=== PATIENT | female | born 1985 | race Caucasian/White ===

== ENCOUNTER 2016-05-20 13:56 | Inpatient (IN) ==
[2016-05-20] MEDS ORDERED: MEPERIDINE 25 MG/1 ML VIAL IM PRN (17:33)
[2016-05-20] MEDS ORDERED: LACTATED RINGERS 500 ML IV PRN (17:33)
[2016-05-20] MEDS ORDERED: LACTATED RINGERS 250 ML IV ONE (17:33)
[2016-05-20] MEDS ORDERED: PROMETHAZINE 25 MG/1 ML VIAL IM PRN (17:37)
[2016-05-20 18:03] LABS: Basophils % 0.1 % (0.0-0.8); Eosinophils # 0.1 10*3/uL (0.0-0.87); Eosinophils % 0.8 % (0.00-10.9); Hematocrit 32.4 VOL% (35.7-47.0); Immature Granulocytes % 0.5 %; Immature Granulocytes Absolute 0.04 #; Lymphocytes # 1.3 10*3/uL (1.4-4.0); Lymphocytes % 16.8 % (21.3-54.2); Mean Corpuscular Hemoglobin 29 PG (27-34); Mean Corpuscular Volume 85.3 FL (87-102); Mean Platelet Volume 11.3 FL (9.6-12.0); Monocytes # 0.4 10*3/uL (0.11-0.8); Monocytes % 5.5 % (1.7-12.7); Neutrophils # 5.7 10*3/uL (1.4-7.4); Neutrophils % 76.3 % (38.7-73.9); Platelet Count 186 10*3/uL (130-400); White Blood Count 7.5 10*3/uL (4.5-13.71)
[2016-05-20] MEDS: LACTATED RINGERS 1,000 ML IV SCH (18:30)
[2016-05-20] MEDS: ONDANSETRON 4 MG/2 ML VIAL IV PRN (18:50)
[2016-05-20] MEDS: FAMOTIDINE 20 MG/2 ML VIAL IV SCH (20:42)
[2016-05-21] MEDS: LACTATED RINGERS 1,000 ML IV SCH (05:00)
[2016-05-21] MEDS ORDERED: CITRIC ACID/SODIUM CITRATE 30 ML UDCUP PO ONE (05:19)
[2016-05-21 06:04] LABS: Basophils % 0.1 % (0.0-0.8); Eosinophils # 0.1 10*3/uL (0.0-0.87); Hematocrit 34.3 VOL% (35.7-47.0); Hemoglobin 11.4 GM/DL (12.0-16.0); Immature Granulocytes % 0.2 %; Immature Granulocytes Absolute 0.02 #; Lymphocytes # 1.7 10*3/uL (1.4-4.0); Lymphocytes % 20.3 % (21.3-54.2); Mean Corpuscular HGB Conc 33.2 GM/DL (32-36); Mean Corpuscular Hemoglobin 29 PG (27-34); Mean Corpuscular Volume 86.4 FL (87-102); Mean Platelet Volume 11.1 FL (9.6-12.0); Monocytes # 0.5 10*3/uL (0.11-0.8); Monocytes % 6.5 % (1.7-12.7); Neutrophils # 5.9 10*3/uL (1.4-7.4); Neutrophils % 71.9 % (38.7-73.9); Platelet Count 210 10*3/uL (130-400); Red Blood Count 3.97 10*6/uL (3.8-5.5); Red Cell Distribution Width 14.2 % (9.3-17.3); White Blood Count 8.2 10*3/uL (4.5-13.71)
[2016-05-21] MEDS ORDERED: OXYTOCIN/LR 20 UNIT/1,000 ML BAG IV ONE ×3 (06:39→12:55)
[2016-05-21] MEDS: FAMOTIDINE 20 MG/2 ML VIAL IV SCH (06:43)
[2016-05-21] MEDS ORDERED: ONDANSETRON 4 MG/2 ML VIAL ONE (07:35)
[2016-05-21] MEDS ORDERED: GLYCOPYRROLATE 0.4 MG/2 ML VIAL ONE (07:35)
[2016-05-21] MEDS ORDERED: PHENYLEPHRINE 1 MG/10 ML SYRINGE IV ONE (07:35)
--- NOTE | 2016-05-21 07:49 | History and Physical Update ---
History and Physical Update - History and Physical H&P was reviewed, the patient examined and there: are no changes in the patients condition since last H&P was completed.
--- NOTE | 2016-05-21 07:51 | Event Note ---
the pt was admitted last night complaining of contractions and lower back pain. She remained stable throughout the night . we will proceed with the planned repeat /BTL this morning
--- NOTE | 2016-05-21 09:14 | Operative Note ---
Date of procedure: 05/21/16 Pre-op diagnosis: , bladder adherent lower uterine segment Post-op diagnosis: same Procedure: 31-year-old white female, 4 para 3 3 C-sections, is undergoing her fourth . Dr. Siu's asked me to help with bladder adhesions. The bladder is significant severely adhesed to the lower uterine segment. With her closure she was very concerned. I scrubbed came to the field. I took down her uterine closure. The bladder is significantly adhered to the lower segment. This was dissected off with sharp dissection. Bladder is intact with no complications and no cystotomies. The bladder is then retracted caudad and she then closed the uterus in the usual fashion. All sponge, needle and sponge counts correct times 2 on the bladder mobilization. Anesthesia: GETA Surgeon / Physician: Sae Fernandez Estimated blood loss: other (5cc) Specimens: none sent Condition: stable Disposition: no change Results - Labs CBC & BMP: 05/21/16 05:53 Discharge Plan - Discharge Medications No Action cephALEXin [Keflex] 1 tablet PO DAILY Vit No.130/Iron/FA [ Vitamins] 1 each PO DAILY Sertraline [Zoloft] 1 tablet PO DAILY Metoprolol Succinate Xl [Toprol Xl] 1 tablet PO DAILY - Follow Up or Referral - Forms/Instructions
--- NOTE | 2016-05-21 09:46 | Anesthesia ---
Anesthesia Post OP - Post Ansesthetic Evaluation Patient seen in post op: Yes Resp: within normal limits CV: within normal limits Mental: within normal limits Temp: within normal limits Xued-[id number]-[id number]: within normal limits Nausea and Vomiting: within normal limits Pain: within normal limits
[2016-05-21] MEDS ORDERED: fentaNYL 100 MCG/2 ML VIAL ONE (09:48)
[2016-05-21] MEDS ORDERED: MORPHINE 10 MG/10 ML VIAL ONE (09:49)
[2016-05-21] MEDS ORDERED: LACTATED RINGERS 1,000 ML IV ONE (09:54)
[2016-05-21 10:11] LABS: Apearance,Urine Slightly Hazy (Clear); Bilirubin,Urine Negative (Negative); Blood, Urine Negative (Negative); Glucose,Urine (UA) Negative (Negative); Ketones,Urine 20 mg/dL (Negative); Mucus,Urine Moderate /LPF (Occasional); Nitrite,Urine Negative (Negative); Protein,Urine Negative; RBC,Urine 3 /HPF (0-4); Squamous Epithelial Cell,Urine Few /HPF (0-10); Urine Color Yellow (Yellow); Urine Specific Gravity 1.015 (1.001-1.035); Urine Urobilinogen < 2.0 EU/DL (0.2-1.0); WBC,Urine 1 /HPF (0-6)
--- NOTE | 2016-05-21 12:03 | Operative Note ---
Pre-op diagnosis: IUP at 39 wk, hx x 3, desires BTL Post-op diagnosis: same Procedure: Findings: female, apgars 8 and 9, wt 6 pound 11 ounces bladder adhesed to ESCOBAR, normal fallopian tubes and ovaries Procedure: This benefits alternatives and complications were reviewed with the patient the patient was amenable to procedure. The patient was thus taken back to the operating room where spinal anesthesia was found be adequate and the patient was prepped and draped in the usual sterile fashion. A Pfannenstiel skin incision was made were prior scar was noted and carried out to the underlying fascia. The fascial incision was then extended laterally with Meza scissors with careful sharp dissection due to scar from prior sections. The superior aspect of the fascial incision was then dissected off the rectus muscle dissected was then with the inferior aspect of the fascial incision. The rectus muscle was then carefully divided in the midline with sharp dissection and the rectus muscle was superiorly and inferiorly and it was noted scar tissue from the prior section with the bladder being adhesions higher up in the lower uterine segment. Careful sharp dissection the rectus muscle was then and some dissection from the bladder mucosa was in order to prevent tearing further of the bladder. This was done without any complications and no injury to the bladder wall. Once the rectus muscle was well the bladder blade was inserted and the vesicouterine peritoneum was noted and the bladder adhesions were extensive but with careful dissection the bladder was mobilized inferiorly enough to have a lower uterine segment that was exposed in able to be incised. An incision was made and extended laterally and superiorly in the lower uterine segment and amniotomy was performed in the amniotic fluid was noted to be clear. The infant 's head was the presenting part and was delivered atraumatically as well as the rest of the . The cord was clamped and cut in the infant was handed off to the waiting nursery team. The placenta removed manually and the uterus cleared of all clots and debris with a clean dry sponge. The uterus was then exteriorized and the lower uterine segment was inspected and the inferior aspect of the incision was very thin and the bladder was near that incision but not touching the incision line. Similarly uterine segment was then carefully repaired using 0 Vicryl in a running fashion with a second imbricating layer. The urine was noted to be clear of any blood. At this point the bladder mucosa was noted to be possibly incorporated in the repair so Dr. Fernandez was called to assess the bladder adhesions. Dr. Fernandez arrived a bilateral tubal ligation was performed first the right fallopian tube was visualized grabbed with Babcocks and an avascular area of mesosalpinx was noted where suture of 30 plain gut was tied front to back to create a knuckle of fallopian tube a second suture was tied underneath the prior wide and the 2 cm segment of fallopian tube on the right size was excised. Hemostasis was assured. The same was done on the left side. Both segments of fallopian tube were sent off the field to be sent to pathology. Dr. Fernandez came please note that he wrote an op note . As per Dr. Fernandez note he mobilized the bladder away from the lower uterine segment repair and the uterus was repaired and hemostasis was assured. Once Dr. Fernandez dissected the bladder away from the lower uterine segment he scrubbed out of the surgery. Surgicel was placed over the lower uterine segment and Interceed was placed over the lower uterine segment as well. The muscle and peritoneum was reapproximated using 0 chromic in a vertical mattress interrupted fashion the fascia was then reapproximated using 0 Vicryl in a running fashion starting at angle and tying in the middle the subcutaneous fat was reapproximated using 3 -0 Vicryl in a running fashion and the skin was reapproximated using similar deducing insular tito. Sponge lap and instrument counts were correct 3. Anesthesia: spinal Surgeon / Physician: Esperanza Vazquez Estimated blood loss: other (500) IV fluids: 2,000 Urine output: 100 (clear) Specimens: other (segment of right and left fallopian tubes) Condition: stable Disposition: floor Results - Labs CBC & BMP: 05/21/16 05:53 Discharge Plan - Discharge Medications No Action cephALEXin [Keflex] 1 tablet PO DAILY Vit No.130/Iron/FA [ Vitamins] 1 each PO DAILY Sertraline [Zoloft] 1 tablet PO DAILY Metoprolol Succinate Xl [Toprol Xl] 1 tablet PO DAILY - Follow Up or Referral - Forms/Instructions
[2016-05-21] MEDS: ONDANSETRON 4 MG/2 ML VIAL IV PRN (12:53)
[2016-05-21] MEDS ORDERED: ACETAMINOPHEN 325 MG TABLET PO PRN (12:55)
[2016-05-21] MEDS ORDERED: SIMETHICONE CHEW 80 MG TABLET PO PRN (12:55)
[2016-05-21] MEDS ORDERED: MAGNESIUM HYDROXIDE SUSP 30 ML UDCUP PO PRN (12:55)
[2016-05-21] MEDS ORDERED: ONDANSETRON 4 MG/2 ML VIAL IV PRN (12:55)
[2016-05-21] MEDS ORDERED: RHO(D) IMMUNE GLOBULIN 300 MCG SYRINGE IM ONE (12:55)
[2016-05-21] MEDS ORDERED: KETOROLAC 30 MG/1 ML VIAL IV ONE (18:02)
[2016-05-21] MEDS: KETOROLAC 30 MG/1 ML VIAL IV PRN (23:30)
[2016-05-22] MEDS: LACTATED RINGERS 1,000 ML IV SCH ×2 (01:00→01:40)
[2016-05-22] MEDS: DOCUSATE SODIUM 100 MG CAPSULE PO SCH ×3 (01:35→21:00)
[2016-05-22 04:17] LABS: Eosinophils # 0.1 10*3/uL (0.0-0.87); Eosinophils % 1.4 % (0.00-10.9); Hematocrit 25.6 VOL% (35.7-47.0); Hemoglobin 8.6 GM/DL (12.0-16.0); Immature Granulocytes % 0.4 %; Immature Granulocytes Absolute 0.03 #; Lymphocytes # 0.9 10*3/uL (1.4-4.0); Lymphocytes % 12.4 % (21.3-54.2); Mean Corpuscular HGB Conc 33.6 GM/DL (32-36); Mean Corpuscular Hemoglobin 29 PG (27-34); Mean Corpuscular Volume 86.8 FL (87-102); Monocytes # 0.5 10*3/uL (0.11-0.8); Monocytes % 6.3 % (1.7-12.7); Neutrophils # 5.6 10*3/uL (1.4-7.4); Neutrophils % 79.5 % (38.7-73.9); Platelet Count 123 10*3/uL (130-400); Red Blood Count 2.95 10*6/uL (3.8-5.5); Red Cell Distribution Width 14.2 % (9.3-17.3); White Blood Count 7.1 10*3/uL (4.5-13.71)
[2016-05-22] MEDS: KETOROLAC 30 MG/1 ML VIAL IV PRN (07:55)
--- NOTE | 2016-05-22 08:45 | OB/GYN Progress Note ---
Assessment and Plan (1) Term , repeat Status: Acute Assessment and plan: POD#1 s/p repeat /BTL and bladder adhesions and bladder mobilization. continue routine post op care. remove aguilar at noon. 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 Her bleeding is scant. she is feeling hungry but is not passing gas yet. 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 Vitals: Vital Signs Temp Pulse Pulse Resp BP Pulse Ox 05/22/16 07:19 98.2 F 69 18 105/53 97 05/22/16 04:00 97.8 F 20 L 20 112/66 97 05/21/16 23:30 97.4 F L 71 20 112/61 100 05/21/16 21:25 97.3 F L 66 20 104/65 100 05/21/16 18:00 18 05/21/16 17:40 100 H 18 121/74 05/21/16 16:40 97.8 F 64 18 109/54 99 05/21/16 16:00 18 General appearance: no acute distress - Head Head exam: Present: normocephalic - Respiratory Respiratory exam: Absent: accessory muscle use - Cardiovascular Cardiovascular exam: Present: regular rate and rhythm - GI/Abdominal GI/Abdominal exam: Absent: guarding, tenderness, rebound - Neurological Exam Neurological exam: Present: alert, oriented X3 - Psychiatric Psychiatric exam: Present: normal affect - Skin Skin exam: Present: normal color Results - Labs CBC & BMP: 05/22/16 03:51
--- NOTE | 2016-05-22 08:48 | Discharge Summary ---
Hospital Course - Hospital Course Hospital Course: the pt was admitted for a repeat x 4 and BTL. She was admitted at 38 wks 6 days complaining of low back pain and mild contractions. She was delivered at 39 weeks . Her was without complications except she did have significant adhesions in the ESCOBAR of the bladder and the urologist , Dr. Fernandez , came in for assistance. Diagnosis - Discharge Diagnosis (1) Term , repeat Status: Acute Specialty Discharge - Follow Up or Referrals Follow up with: Esperazna Vazquez MD [Physician] - 1 Week Discharge Plan - Discharge Data Disposition: Disch To Home/Self Care Condition at Discharge: Stable Discharge Diet: advance to your usual diet Activity: resume usual activities as tolerated, no lifting Hygiene: may shower Weight Bearing at Discharge: full weight bearing Contact your physician if you experience:: fever over 101, Difficulty voiding, Redness or swelling, Nausea/Vomiting, Shortness of breath, Bleeding, pain uncontrolled by pain medications - Discharge Medications New HYDROcodone/ACETAMIN 5-325 [Nolan 5-325] 1 - 2 tablet PO Q6H PRN #30 tablet PRN Reason: Abdominal Pain No Action cephALEXin [Keflex] 1 tablet PO DAILY Vit No.130/Iron/FA [ Vitamins] 1 each PO DAILY Sertraline [Zoloft] 1 tablet PO DAILY Metoprolol Succinate Xl [Toprol Xl] 1 tablet PO DAILY - Follow Up or Referral - Forms/Instructions Exam - Constitutional Vitals: Period Temp Pulse Resp BP Sys/Torres Pulse Ox Last 24 Hr 97.3 F-98.2 F 20-100 18-20 104-121/53-74 97-100 Discharge Results Labs on day of discharge: Labs from last 24 hours 05/22/16 05/21/16 03:51 07:55 WBC 7.1 RBC 2.95 L D Hgb 8.6 L D Hct 25.6 L MCV 86.8 L MCH 29 MCHC 33.6 RDW 14.2 Plt Count 123 L D MPV 11.0 Neut % (Auto) 79.5 H Lymph % (Auto) 12.4 L Cobb % (Auto) 6.3 Eos % (Auto) 1.4 Baso % (Auto) 0.0 Neut # (Auto) 5.6 Lymph # (Auto) 0.9 L Cobb # (Auto) 0.5 Eos # (Auto) 0.1 Baso # (Auto) 0.0 Immature Gran % 0.4 Nucleated RBC % 0.0 Immature Gran # 0.03 Nucleated RBCs # 0.00 Urine Color Yellow Urine Appearance Slightly hazy Urine pH 6.0 Ur Specific Dahlgren 1.015 Urine Protein Negative Urine Glucose (UA) Negative Urine Ketones 20 Urine Blood Negative Urine Nitrate Negative Urine Bilirubin Negative Urine Urobilinogen < 2.0 H Urine Leukocytes Negative Urine RBC 3 Urine WBC 1 Ur Squamous Epith Cells Few Urine Mucus Moderate Ur Culture Indicated? Not indicated DS: Provider Date of admission: 05/20/16 13:56 Primary care physician: . No PCP Attending physician on admission: Esperanza Isacas- Consults: 05/20/16 17:34 Consult to Anesthesiology [CONS] Routine Consulting Provider: Reason for Anesthesiology: Epidural Consult Comment: Epidural for pain managment 05/21/16 05:19 Consult to Anesthesiology [CONS] Routine Consulting Provider: Reason for Anesthesiology: Pre-op Clearance 05/21/16 12:55 Consult to Tower Helper [CONS] Routine Consult Tower Helper: Breast Feeding Discharging clinician: Esperanza Isaacs- Expected date of discharge: 05/24/16
[2016-05-22] MEDS: MULTIVITAMIN (PRENATAL) TABLET PO SCH (09:17)
[2016-05-22] MEDS: SERTRALINE 50 MG TABLET PO SCH (09:17)
--- NOTE | 2016-05-22 12:24 | Pathology Report from [facility] ---
ACCESSION # : [id number] PATIENT NAME : Earl Singh ORDERING DR : Esperanza Siu MD CLINICAL HX: term @ 39.2 wks gestation, desires tubal sterilization POST-OP DX: Same SPECIMEN INFO: #1 RT portion of fallopian tube #2 LT portion of fallopian tube GROSS DESCRIPTION: #1 Received fresh labeled with the patient's name "EARL SINGH and RT FALLOPIAN TUBE" consists of a pink-[place] segment of unfimbriated fallopian tube that measures 2.4 x 0.6 cm. A loss control representative section submitted in cassette #1.#2 Received fresh labeled with the patient's name "EARL SINGH and LT FALLOPIAN TUBE" consists of a unfimbriated segment of pink-flores fallopian tube measuring 1.7 x 0.5 cm. A loss control representative section submitted in cassette #2. DIAGNOSIS FOR EARL SINGH: #1 Completely transected segment of fallopian tube, right.#2 Completely transected segment of fallopian tube, left. SERVICE DATE: 05/21/2016 REPORT DATE: 05/22/2016 PATHOLOGIST: Bret Jean M.D. [facility]
[2016-05-22] MEDS: IBUPROFEN 800 MG TABLET PO PRN ×2 (14:24→21:00)
[2016-05-23 07:58] VITALS: BP 115/75
[2016-05-23] MEDS: IBUPROFEN 800 MG TABLET PO PRN (08:43)
[2016-05-23] MEDS: DOCUSATE SODIUM 100 MG CAPSULE PO SCH (08:44)
[2016-05-23] MEDS: MULTIVITAMIN (PRENATAL) TABLET PO SCH (08:44)
[2016-05-23] MEDS: SERTRALINE 50 MG TABLET PO SCH (08:44)
== END 2016-05-23 12:05 | disposition home or self-care (01) | DRG 766 ==
LOC: N.LD 13:56 → N.OB 05-21 22:22
PROVIDERS: ADMIT Obstetrics & Gynecology; ATTEND Obstetrics & Gynecology